=== PATIENT | male | born 1945 | race American Indian/Alaskan Native ===

== ENCOUNTER 2020-10-23 06:04 | Day surgery (SDC) | payer MEDICARE ==
--- NOTE | 2020-10-18 13:45 | Anesthesia Consultation ---
Anesthesia Consult and Med Hx Date of service: 10/23/20 - Airway Anesthetic Teeth Evaluation: Crowns ROM Head & Neck: Adequate Mental/Hyoid Distance: Adequate Mallampati Class: Class II Intubation Access Assessment: Good - Pre-Operative Health Status ASA Pre-Surgery Classification: ASA3 Proposed Anesthetic Plan: General - Pulmonary Hx Smoking: No Hx Asthma: No Hx Respiratory Symptoms: No (+2FS. Used to walk 1.5 miles 3x/week) COPD: No Hx Pneumonia: No Hx Sleep Apnea: No (ELIZABETH PRE SCREEN HIGH RISK) - Cardiovascular System Hx Hypertension: Yes (+Cardiac Clearance) Hx Heart Attack/AMI: No (CHF/Cardiomyopathy EF 0.40) Hx Pacemaker: Yes Hx Internal Defibrillator: Yes ([id number] Never discharged. 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
[~2020-10-23 06:04] MED LIST: LACTATED RINGERS 1,000 ML IV SCH; WATER FOR IRRIG STERILE 1,500 ML BOTTLE IR ONE
[2020-10-23] MEDS ORDERED: BACTERIOSTATIC SODIUM CHLORIDE 0.9% 30 ML VIAL INFILTRATI ONE (06:28)
[2020-10-23] MEDS ORDERED: ceFAZolin/STERILE WATER 2 GM/20 ML SYRINGE IV NR (07:00)
[2020-10-23] MEDS ORDERED: HYDROmorphone 1 MG/1 ML INJ ONE (07:12)
[2020-10-23] MEDS ORDERED: LIDOCAINE MPF (2%) 20 MG/1 ML VIAL 5 ML ONE (07:12)
[2020-10-23] MEDS ORDERED: propofoL 200 MG/20 ML VIAL IV ONE (07:12)
[2020-10-23] MEDS ORDERED: MIDAZOLAM 2 MG/2 ML INJ ONE (07:12)
[2020-10-23] MEDS ORDERED: MIDAZOLAM 2 MG/2 ML INJ IV NR (07:15)
[2020-10-23] MEDS ORDERED: fentaNYL 100 MCG/2 ML INJ IV PRN (07:29)
--- NOTE | 2020-10-23 07:29 | Anesthesia Day of Surgery ---
Anesthesia Day of Surgery - Day of Surgery Patient Examined: Yes Patient H&P Reviewed: Yes Patient is NPO: Yes Beta Blockers: Yes Cardiac Clearance: Yes
[2020-10-23] MEDS ORDERED: WATER FOR IRRIG STERILE 2000 ML IR ONE (08:09)
[2020-10-23] MEDS ORDERED: IOHEXOL 300 MG/ML 50ML IV ONE (08:11)
[2020-10-23] MEDS ORDERED: WATER FOR IRRIG STERILE 1,500 ML BOTTLE IR ONE (08:25)
[2020-10-23] MEDS ORDERED: ONDANSETRON 4 MG/2 ML INJ ONE (08:34)
--- NOTE | 2020-10-23 08:47 | Fluoroscopy Report ---
INTRAOPERATIVE FLUOROSCOPY: RETROGRADE UROGRAPHY INDICATION / CLINICAL INFORMATION: CYSTO TURP. BILATERAL RPGS. TECHNIQUE: Intraoperative spot images were obtained during the procedure. FINDINGS: No filling defects are seen in either renal collecting system or ureter. Embolization coils project o jim the right abdomen medial to the right kidney. Fluoroscopy Time: 11 seconds. Fluoroscopy Images: 8. Signer Name: Chuck Templeton MD Signed: 10/23/2020 8:43 AM Workstation Name: [id number]
--- NOTE | 2020-10-23 08:56 | Short Stay Summary ---
Short Stay Documentation Date of service: 10/23/20 - History H&P: obtained from office - Allergies and Medications Current Medications: Allergies lisinopril Adverse Reaction (Severe, Verified 10/09/20 15:31) Angioedema Home Medications Medication Instructions Recorded Confirmed Last Taken Type Alfuzosin HCl ER 10 mg PO DAILY 10/09/20 10/09/20 10/22/20 History Aspirin 81 mg PO DAILY 10/09/20 10/23/20 5 Days Ago History ~10/18/20 AtorvaSTATin 20 mg PO DAILY 10/09/20 10/09/20 10/22/20 History Calcium 1 tab PO DAILY 10/09/20 10/09/20 10/22/20 History Finasteride 5 mg PO DAILY 10/09/20 10/09/20 10/22/20 History Januvia 50 mg PO DAILY 10/09/20 10/09/20 10/22/20 History One-Daily Multi-Vitamin 1 tab PO DAILY 10/09/20 10/09/20 10/22/20 History Spironolactone 25 mg PO DAILY 10/09/20 10/09/20 10/22/20 History Tacrolimus [Prograf] 2 cap PO BID 10/09/20 10/09/20 10/22/20 History amLODIPine 5 mg PO DAILY 10/09/20 10/09/20 10/22/20 History carvediloL 25 mg PO Q12HR 10/09/20 10/09/20 10/22/20 History Active Medications Cefazolin Sodium (Cefazolin/Sterile Water 2 Gm/20 Ml Syringe) 2 gm IV PREOP NR Stop: 10/23/20 23:59 Fentanyl (Fentanyl 100 Mcg/2 Ml Inj) 50 mcg IV Q5MIN PRN PRN Reason: Pain , Severe (7-10) Stop: 10/23/20 23:00 Lactated Ringer's (Lactated Ringers) 1,000 mls @ 100 mls/hr IV DIRECT TABATHA Last Admin: 10/23/20 07:25 Dose: 100 mls/hr Documented by: Midazolam HCl (Midazolam 2 Mg/2 Ml Inj) 2 mg IV ONCE NR Stop: 10/23/20 14:00 Last Admin: 10/23/20 07:15 Dose: 2 mg Documented by: - Brief post op/procedure progress note Date of procedure: 10/23/20 Pre-op diagnosis: bladder tumor Post-op diagnosis: same Procedure: cysto, rpg, turbt--right, tur bx prostate Anesthesia: GETA Surgeon: ISABELLE JONES Estimated blood loss: minimal Pathology: list (bladder tumor, prostate bx) Specimen disposition: to lab Condition: stable - Hospital course Hospital course: abx, pain pill, post op info on chart - Disposition Condition at discharge: Stable Disposition: DC-01 TO HOME OR SELFCARE Short Stay Discharge Plan Follow up with: YINA YEN [Other] - 7 Days
--- NOTE | 2020-10-23 08:58 | Operative Report ---
PREOPERATIVE DIAGNOSIS: Bladder tumor (right side wall). POSTOPERATIVE DIAGNOSIS: Bladder tumor (right side wall). PROCEDURE: Cystoscopy, bilateral retrograde pyelograms, transurethral resection of bladder tumor, TUR biopsy of prostate. SURGEON: Attila Flores MD ANESTHESIA: General. ESTIMATED BLOOD LOSS: Minimal. FLUIDS: Crystalloid. COMPLICATIONS: No complications. INDICATIONS: This patient is a 75-year-old gentleman known to my service with enlarged prostate and elevated PSA, developed an episode of gross hematuria. Cystoscopy revealed a papillary tumor on the right side wall, slightly on the dome. He presents now for surgical intervention. Risks, benefits, and complications were explained. DESCRIPTION OF PROCEDURE: The patient was taken to the operative suite, placed in a supine position. After adequate general anesthesia, placed in a dorsal lithotomy position, prepped and draped in a sterile fashion. Pancystourethroscopy was performed with a 22-Mosotho Storz cystoscope, no urethral abnormalities. His prostate displayed moderate trilobar obstruction. Bladder, obvious approximately a 1 cm papillary tumor in the right side wall near the dome. Both ureteral orifices in normal position. The patient had diffuse trabeculation. Bilateral retrograde pyelograms were obtained with an 8-Mosotho Cornelio catheter and 8 mL of contrast. No filling defects or obstruction. He did have some J hooking of his distal ureters. Using a yellow loop with the cutting and coag on 120 and 60, transurethral resection of the bladder tumor was performed without difficulty. I removed it completely, cauterized, normal base of tissue of 5 mm. Due to its location, got a little deep into the bladder muscle. We will leave a Naylor catheter afterwards. I did a TUR of the median lobe as a biopsy. Adequate hemostasis was achieved. Chips were evacuated out separately, prostate and bladder tumor. A 22-Mosotho 3-way catheter with a plug was placed. Rectal exam was benign. He was extubated and taken to recovery room. He will go home on [place] and follow up in the office. JOB# [id number] [facility]
[2020-10-23 09:43] VITALS: BP 126/82
--- NOTE | 2020-10-23 13:57 | Post Anesthesia Evaluation ---
- Post Anesthesia Evaluation Patient Participated: Yes Airway Patent: Yes Stable Respiratory Function: Yes Nausea/Vomiting: No Temp > 96.8F: Yes Pain Manageable: Yes Adequeate Hydration: Yes Anesthesia Complications: No
== END 2020-10-23 10:35 | disposition home or self-care (01) ==
LOC: OR 06:04
PROVIDERS: ATTEND Urology
DX: C67.2 Malignant neoplasm of lateral wall of bladder (principal); N40.0 Benign prostatic hyperplasia without lower urinary tract symptoms; N36.8 Other specified disorders of urethra; I50.9 Heart failure, unspecified; I42.9 Cardiomyopathy, unspecified; I11.0 Hypertensive heart disease with heart failure; E78.00 Pure hypercholesterolemia, unspecified; K21.9 Gastro-esophageal reflux disease without esophagitis; M19.90 Unspecified osteoarthritis, unspecified site; E11.9 Type 2 diabetes mellitus without complications; Z98.890 Other specified postprocedural states; Z86.19 Personal history of other infectious and parasitic diseases; Z88.8 Allergy status to other drugs, medicaments and biological substances; Z79.899 Other long term (current) drug therapy; Z98.49 Cataract extraction status, unspecified eye; Z90.49 Acquired absence of other specified parts of digestive tract; Z94.4 Liver transplant status; Z85.89 Personal history of malignant neoplasm of other organs and systems
CPT/HCPCS: 52234; 55700; 74420; 82962; 88305; 88307; A4217; J0690; J1170; J2250; J2405; J2704; J7120; Q9967; U0003

== ENCOUNTER 2020-10-24 03:37 | Emergency (ER) | payer MEDICARE ==
--- NOTE | 2020-10-24 03:57 | Event Note ---
ED Screening Note Date of service: 10/24/20 Time: 03:47 ED Screening Note: 75-year-old -[place] male was brought in by his reporting he recently got a catheter placed and now it is leaking and causing pain. Patient states that he had a catheter placed by Dr. Yaakov Flores urologist yesterday at 7:30 in the morning. This initial assessment/diagnostic orders/clinical plan/treatment(s) is/are subject to change based on patients health status, clinical progression and re-assessment by fellow clinical providers in the ED. Further treatment and workup at subsequent clinical providers discretion. Patient/guardian urged not to elope from the ED as their condition may be serious if not clinically assessed and managed. Initial orders include:
--- NOTE | 2020-10-24 04:27 | Emergency Department Report ---
ED General Adult HPI - General Chief complaint: Tube Replacement Stated complaint: CATHETER LEAKING/PAINFUL Time Seen by Provider: 10/24/20 04:10 Source: patient Mode of arrival: Ambulatory Limitations: No Limitations - History of Present Illness Initial comments: Patient is 75 years old male with history of benign prostatic hypertrophy and a recent diagnosis of papillary carcinoma. Patient had cystoscopy yesterday by . Patient presented to the ER complaining of leaking around the catheter with pain. Patient has denied any fever or chills. No nausea or vomiting. - Related Data Home Medications Medication Instructions Recorded Confirmed Last Taken Alfuzosin HCl ER 10 mg PO DAILY 10/09/20 10/09/20 10/22/20 Aspirin 81 mg PO DAILY 10/09/20 10/23/20 5 Days Ago ~10/18/20 AtorvaSTATin 20 mg PO DAILY 10/09/20 10/09/20 10/22/20 Calcium 1 tab PO DAILY 10/09/20 10/09/20 10/22/20 Finasteride 5 mg PO DAILY 10/09/20 10/09/20 10/22/20 Januvia 50 mg PO DAILY 10/09/20 10/09/20 10/22/20 One-Daily Multi-Vitamin 1 tab PO DAILY 10/09/20 10/09/20 10/22/20 Spironolactone 25 mg PO DAILY 10/09/20 10/09/20 10/22/20 Tacrolimus [Prograf] 2 cap PO BID 10/09/20 10/09/20 10/22/20 amLODIPine 5 mg PO DAILY 10/09/20 10/09/20 10/22/20 carvediloL 25 mg PO Q12HR 10/09/20 10/09/20 10/22/20 Allergies Allergy/AdvReac Type Severity Reaction Status Date / Time lisinopril AdvReac Severe Angioedema Verified 10/09/20 15:31 ED Review of Systems ROS: Stated complaint: CATHETER LEAKING/PAINFUL Other details as noted in HPI Comment: All other systems reviewed and negative Constitutional: denies: chills, fever Respiratory: denies: cough, shortness of breath, SOB with exertion Cardiovascular: denies: chest pain, palpitations Gastrointestinal: denies: abdominal pain, nausea, vomiting Musculoskeletal: denies: back pain Neurological: denies: headache, weakness ED Past Medical Hx - Past Medical History Hx Hypertension: Yes (+Cardiac Clearance) Hx Heart Attack/AMI: No (CHF/Cardiomyopathy EF 0.40) Hx Congestive Heart Failure: Yes Hx Diabetes: Yes (MILD / DRUG INDUCED) Hx GERD: Yes Hx Liver 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 ) Hx Cholecystectomy: Yes (TAKEN OUT SAME TIME LIVER TRANSPLANT) - Social History Smoking Status: Never Smoker - Medications Home Medications: Home Medications Medication Instructions Recorded Confirmed Last Taken Type Alfuzosin HCl ER 10 mg PO DAILY 10/09/20 10/09/20 10/22/20 History Aspirin 81 mg PO DAILY 10/09/20 10/23/20 5 Days Ago History ~10/18/20 AtorvaSTATin 20 mg PO DAILY 10/09/20 10/09/20 10/22/20 History Calcium 1 tab PO DAILY 10/09/20 10/09/20 10/22/20 History Finasteride 5 mg PO DAILY 10/09/20 10/09/20 10/22/20 History Januvia 50 mg PO DAILY 10/09/20 10/09/20 10/22/20 History One-Daily Multi-Vitamin 1 tab PO DAILY 10/09/20 10/09/20 10/22/20 History Spironolactone 25 mg PO DAILY 10/09/20 10/09/20 10/22/20 History Tacrolimus [Prograf] 2 cap PO BID 10/09/20 10/09/20 10/22/20 History amLODIPine 5 mg PO DAILY 10/09/20 10/09/20 10/22/20 History carvediloL 25 mg PO Q12HR 10/09/20 10/09/20 10/22/20 History ED Physical Exam - General Limitations: No Limitations General appearance: alert, in no apparent distress - Head Head exam: Present: atraumatic, normocephalic, normal inspection - Eye Eye exam: Present: normal appearance - ENT ENT exam: Present: normal exam, normal orophraynx, mucous membranes moist - Respiratory Respiratory exam: Present: normal lung sounds bilaterally - Cardiovascular Cardiovascular Exam: Present: regular rate, normal rhythm, normal heart sounds - GI/Abdominal GI/Abdominal exam: Present: soft, normal bowel sounds. Absent: distended, tenderness, guarding, rebound, rigid - exam: Present: other (Catheter in place however there is significant leakage around the catheter.) - Back Exam Back exam: Present: normal inspection, full ROM. Absent: CVA tenderness (R), CVA tenderness (L) - Neurological Exam Neurological exam: Present: alert, oriented X3, CN II-XII intact - Skin Skin exam: Present: warm, intact, normal color ED Course Vital Signs 10/24/20 10/24/20 03:53 08:00 Temperature 98.4 F Pulse Rate 93 H 79 Respiratory 18 16 Rate Blood Pressure 133/83 Blood Pressure 136/89 [Left] O2 Sat by Pulse 96 97 Oximetry ED Medical Decision Making - Medical Decision Making Patient is 75 years old male with history of benign prostatic hypertrophy and a recent diagnosis of papillary carcinoma. Patient had cystoscopy yesterday by . Patient presented to the ER complaining of leaking around the catheter with pain. Patient has denied any fever or chills. No nausea or vomiting. I discussed the patient with Dr. Moses, he advised to keep the patient in the emergency room and will come and examine the patient. Critical care attestation.: If time is entered above; I have spent that time in minutes in the direct care of this critically ill patient, excluding procedure time. ED Disposition Clinical Impression: Naylor catheter problem Disposition: DC-01 TO HOME OR SELFCARE Is pt being admited?: No Condition: Stable Instructions: Indwelling Urinary Catheter Care, Adult Referrals: ISABELLE JONES MD [Staff Physician] - 3-5 Days PRIMARY CARE, [Primary Care Provider] - 3-5 Days
[2020-10-24] MEDS ORDERED: SODIUM CHLORIDE IRRI 500 ML 500 ML IR ONE (11:00)
[2020-10-24 11:15] VITALS: BP 136/89
[2020-10-24] MEDS ORDERED: SODIUM CHLORIDE 0.9% IRR 1,000 ML BOTTLE IR ONE (11:30)
--- NOTE | 2020-10-24 12:29 | Consultation ---
History of Present Illness - Reason for Consult Consult date: 10/24/20 - History of Present Illness 75 yr old s/p TURBT with polanco yesterday pt came to ER---concerned about blood in urine & bladder spasms abd soft polanco draining well ---irrigated with 50-100cc saline---no clots a/p hematuria--s/p bladder tumor + bladder spasm home with myrbetriq 25mg daily (samples given) keep f/u Medications and Allergies Allergies Allergy/AdvReac Type Severity Reaction Status Date / Time lisinopril AdvReac Severe Angioedema Verified 10/09/20 15:31 Home Medications Medication Instructions Recorded Confirmed Last Taken Type Alfuzosin HCl ER 10 mg PO DAILY 10/09/20 10/09/20 10/22/20 History Aspirin 81 mg PO DAILY 10/09/20 10/23/20 5 Days Ago History ~10/18/20 AtorvaSTATin 20 mg PO DAILY 10/09/20 10/09/20 10/22/20 History Calcium 1 tab PO DAILY 10/09/20 10/09/20 10/22/20 History Finasteride 5 mg PO DAILY 10/09/20 10/09/20 10/22/20 History Januvia 50 mg PO DAILY 10/09/20 10/09/20 10/22/20 History One-Daily Multi-Vitamin 1 tab PO DAILY 10/09/20 10/09/20 10/22/20 History Spironolactone 25 mg PO DAILY 10/09/20 10/09/20 10/22/20 History Tacrolimus [Prograf] 2 cap PO BID 10/09/20 10/09/20 10/22/20 History amLODIPine 5 mg PO DAILY 10/09/20 10/09/20 10/22/20 History carvediloL 25 mg PO Q12HR 10/09/20 10/09/20 10/22/20 History Exam - Constitutional Vitals: Temp Pulse Resp BP Pulse Ox 98.4 F 79 16 136/89 97 10/24/20 03:53 10/24/20 08:00 10/24/20 08:00 10/24/20 08:00 10/24/20 08:00
== END 2020-10-24 12:00 | disposition home or self-care (01) ==
LOC: ED 03:37
DX: T83.038A Leakage of other urinary catheter, initial encounter (principal); I11.0 Hypertensive heart disease with heart failure; I50.9 Heart failure, unspecified; E11.9 Type 2 diabetes mellitus without complications; K21.9 Gastro-esophageal reflux disease without esophagitis; M19.91 Primary osteoarthritis, unspecified site; Z90.49 Acquired absence of other specified parts of digestive tract; Z98.890 Other specified postprocedural states; Z79.899 Other long term (current) drug therapy; Z88.8 Allergy status to other drugs, medicaments and biological substances; Y92.89 Other specified places as the place of occurrence of the external cause
CPT/HCPCS: 99282

== ENCOUNTER 2021-02-24 07:33 | Day surgery (SDC) | payer MEDICARE ==
--- NOTE | 2021-02-20 14:37 | Anesthesia Consultation ---
Anesthesia Consult and Med Hx Date of service: 02/24/21 - Airway Anesthetic Teeth Evaluation: Good ROM Head & Neck: Adequate Mental/Hyoid Distance: Adequate Mallampati Class: Class II Intubation Access Assessment: Good - Pre-Operative Health Status ASA Pre-Surgery Classification: ASA3 Proposed Anesthetic Plan: General - Pulmonary Hx Smoking: No Hx Respiratory Symptoms: No (+2FS. Used to walk 1.5 miles 3x/week) Hx Sleep Apnea: No (ELIZABETH PRE SCREEN HIGH RISK) - Cardiovascular System Hx Hypertension: Yes (+Cardiac Clearance last time. Saw cards [id number]) Hx Heart Attack/AMI: No (CHF/Cardiomyopathy EF 0.45-.50 [id number]) Hx Pacemaker: Yes Hx Internal Defibrillator: Yes ([id number] Never discharged. 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
[~2021-02-24 07:33] MED LIST changes: +IOHEXOL 300 MG/ML 50ML IV ONE; +MIDAZOLAM 2 MG/2 ML INJ IV NR; +WATER FOR IRRIG STERILE 2000 ML IR ONE; +ceFAZolin/STERILE WATER 2 GM/20 ML SYRINGE IV NR
--- NOTE | 2021-02-24 08:31 | Anesthesia Day of Surgery ---
Anesthesia Day of Surgery - Day of Surgery Patient Examined: Yes Patient H&P Reviewed: Yes Patient is NPO: Yes Beta Blockers: Yes
[2021-02-24] MEDS ORDERED: HYDROcodone/ACETAMINOPHEN 5-325 MG TAB PO PRN (09:00)
[2021-02-24] MEDS ORDERED: HYDROmorphone 1 MG/1 ML INJ IV PRN (09:00)
[2021-02-24] MEDS ORDERED: ONDANSETRON 4 MG/2 ML INJ IV PRN (09:00)
[2021-02-24] MEDS ORDERED: dexAMETHasone 20 MG/5 ML VIAL ONE (09:01)
[2021-02-24] MEDS ORDERED: fentaNYL 100 MCG/2 ML INJ ONE (09:01)
[2021-02-24] MEDS ORDERED: LIDOCAINE MPF (2%) 20 MG/1 ML VIAL 5 ML ONE (09:01)
[2021-02-24] MEDS ORDERED: propofoL 200 MG/20 ML VIAL IV ONE (09:02)
[2021-02-24] MEDS ORDERED: ACETAMINOPHEN IV 1,000 MG/100 ML BOTTLE IV ONE (09:16)
[2021-02-24] MEDS ORDERED: WATER FOR IRRIG STERILE 1,500 ML BOTTLE IR ONE (09:42)
[2021-02-24] MEDS ORDERED: WATER FOR IRRIG STERILE 2000 ML IR ONE (09:42)
[2021-02-24] MEDS ORDERED: IOHEXOL 300 MG/ML 50ML IV ONE (09:42)
[2021-02-24] MEDS ORDERED: ePHEDrine SULFATE 50 MG/1 ML INJ ONE ×2 (09:45→09:59)
--- NOTE | 2021-02-24 10:55 | Operative Report ---
DATE OF SURGERY: 02/24/2021 PREOPERATIVE DIAGNOSIS: Recurrent bladder tumors. POSTOPERATIVE DIAGNOSIS: Recurrent bladder tumors. PROCEDURES: Cystoscopy, bilateral retrograde pyelograms, biopsy of bladder lesions x3, TUR bladder neck, right side. SURGEON: Attila Flores MD ANESTHESIA: General. ESTIMATED BLOOD LOSS: Minimal. FLUIDS: Crystalloid. COMPLICATIONS: No complications. INDICATIONS: This patient is a 76-year-old gentleman with history of a small bladder tumor on surveillance cystoscopy was found to have recurrent small tumors. He presents now for intervention. DESCRIPTION OF PROCEDURE: The patient was taken to the operative suite, placed in a supine position. After adequate general anesthesia, placed in the dorsal lithotomy position, prepped and draped in a sterile fashion. Pancystourethroscopy was performed with a 22-Andorran Storz cystoscope. No urethral abnormalities. His prostate displayed moderate trilobar obstruction with moderate sized median lobe. Both ureteral orifices in normal position. Small papillary tumors 3 on the right upper side wall, bilateral retrograde pyelograms were obtained with an 8-Andorran Cornelio catheter and 8 mL of contrast. No filling defects or obstruction. Next, using a cold cup biopsy forceps, the tumors were superficial, did not want to perforate the wall. I was able to remove them actually without using a resectoscope. The base of all 3 tumors were cauterized with 5 mm of normal tissue. A small TUR of the bladder neck (prostate) was also performed. Adequate hemostasis was achieved. Bladder was drained. Rectal exam was benign. He was extubated and taken to recovery room in stable condition. He will go home on [employer] [facility] [place]. TID: [id number] RECEIPT: [id number] [facility]
[2021-02-24 13:15] VITALS: BP 114/75
--- NOTE | 2021-02-24 17:34 | Fluoroscopy Report ---
INTRAOPERATIVE FLUOROSCOPY: ABDOMEN INDICATION: BLADDER CANCER. TECHNIQUE: Intraoperative spot images were obtained during the procedure. FINDINGS: There is unremarkable opacification of the ureters and renal collecting systems on the submitted imag es. Please see the report for the procedure for further details. Fluoroscopy Time: 9 seconds. Fluoroscopy Images: 8. Signer Name: Mitesh Callejas MD Signed: 02/24/2021 5:29 PM Workstation Name: [id number]
== END 2021-02-24 07:34 | disposition home or self-care (01) ==
LOC: OR 07:33
PROVIDERS: ATTEND Urology
DX: C67.2 Malignant neoplasm of lateral wall of bladder (principal); Z20.822 Contact with and (suspected) exposure to COVID-19; N30.20 Other chronic cystitis without hematuria; I11.0 Hypertensive heart disease with heart failure; I50.9 Heart failure, unspecified; K21.9 Gastro-esophageal reflux disease without esophagitis; M19.90 Unspecified osteoarthritis, unspecified site; E11.9 Type 2 diabetes mellitus without complications; Z80.42 Family history of malignant neoplasm of prostate; Z88.8 Allergy status to other drugs, medicaments and biological substances; Z79.899 Other long term (current) drug therapy; Z79.82 Long term (current) use of aspirin; Z98.49 Cataract extraction status, unspecified eye; Z95.0 Presence of cardiac pacemaker; Z90.49 Acquired absence of other specified parts of digestive tract; Z94.4 Liver transplant status; Z98.890 Other specified postprocedural states
CPT/HCPCS: 52204; 52500; 74420; 82962; 88305; A4217; J0131; J0690; J1100; J1170; J2250; J2405; J2704; J3010; J7120; Q9967; U0003; 88307

== ENCOUNTER 2022-04-15 06:01 | Day surgery (SDC) | payer MEDICARE ==
[2022-04-14 10:33] LABS: Albumin 3.9 g/dL (3.9-5); Calcium 9.6 mg/dL (8.4-10.2)
[2022-04-14 10:46] LABS: Hematocrit 42.6 % (35.5-45.6); Hemoglobin 14.2 gm/dl (11.8-15.2); Mean Corpuscular HGB Conc 33 % (32-34); Mean Corpuscular Volume 85 fl (84-94); Platelet Count 213 K/mm3 (140-440); Red Blood Count 5.03 M/mm3 (3.65-5.03); Red Cell Distribution Width 15.4 % (13.2-15.2)
[2022-04-15] MEDS ORDERED: LACTATED RINGERS 1,000 ML ONE (06:20)
[2022-04-15] MEDS ORDERED: LACTATED RINGERS 1,000 ML IV SCH (06:45)
--- NOTE | 2022-04-15 07:41 | Anesthesia Consultation ---
Anesthesia Consult and Med Hx Date of service: 04/15/22 - Airway Anesthetic Teeth Evaluation: Good ROM Head & Neck: Adequate Mental/Hyoid Distance: Adequate Mallampati Class: Class II Intubation Access Assessment: Possibly Difficult - Pulmonary Exam CTA: Yes - Cardiac Exam Cardiac Exam: RRR - Pre-Operative Health Status ASA Pre-Surgery Classification: ASA3 Proposed Anesthetic Plan: General - Pulmonary Hx Smoking: No Hx Respiratory Symptoms: No (+2FS. 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 No FHAC.
--- NOTE | 2022-04-15 07:41 | Anesthesia Day of Surgery ---
Anesthesia Day of Surgery - Day of Surgery Patient Examined: Yes Patient H&P Reviewed: Yes Patient is NPO: Yes Beta Blockers: Yes Cardiac Clearance: Yes (from 07/2021 evaluation)
[2022-04-15] MEDS ORDERED: ONDANSETRON 4 MG/2 ML INJ ONE (07:49)
[2022-04-15] MEDS ORDERED: HYDROmorphone 0.5 MG/0.5 ML INJ ONE (07:49)
[2022-04-15] MEDS ORDERED: dexAMETHasone 20 MG/5 ML VIAL ONE (07:49)
[2022-04-15] MEDS ORDERED: LIDOCAINE MPF (2%) 20 MG/1 ML VIAL 5 ML ONE (07:49)
[2022-04-15] MEDS ORDERED: propofoL 200 MG/20 ML VIAL IV ONE (07:50)
[2022-04-15] MEDS ORDERED: ePHEDrine SULFATE 50 MG/1 ML INJ ONE ×2 (07:50→08:19)
[2022-04-15] MEDS ORDERED: ceFAZolin/STERILE WATER 2 GM/20 ML SYRINGE IV NR (08:00)
[2022-04-15] MEDS ORDERED: WATER FOR IRRIG STERILE 2000 ML IR ONE (08:47)
--- NOTE | 2022-04-15 08:48 | Short Stay Summary ---
Short Stay Documentation Date of service: 04/15/22 - History H&P: obtained from office - Allergies and Medications Current Medications: Allergies lisinopril Adverse Reaction (Severe, Verified 10/09/20 15:31) Angioedema Home Medications Medication Instructions Recorded Confirmed Last Taken Type Alfuzosin HCl ER 10 mg PO DAILY 10/09/20 04/13/22 04/15/22 05:30 History Aspirin 81 mg PO DAILY 10/09/20 04/15/22 04/09/22 History AtorvaSTATin 20 mg PO DAILY 10/09/20 04/13/22 04/14/22 History Calcium 1 tab PO DAILY 10/09/20 04/13/22 04/14/22 History Finasteride 5 mg PO DAILY 10/09/20 04/13/22 04/15/22 05:30 History One-Daily Multi-Vitamin 1 tab PO DAILY 10/09/20 04/13/22 04/14/22 History Spironolactone 25 mg PO DAILY 10/09/20 04/13/22 04/14/22 History Tacrolimus [Prograf] 2 cap PO BID 10/09/20 04/13/22 04/15/22 05:30 History amLODIPine 5 mg PO DAILY 10/09/20 04/13/22 04/15/22 05:30 History carvediloL 25 mg PO Q12HR 10/09/20 04/13/22 04/15/22 05:30 History glipiZIDE [Glucotrol] 5 mg PO QDAY 04/14/22 04/14/22 04/14/22 History Active Medications Cefazolin Sodium (Cefazolin/Sterile Water 2 Gm/20 Ml Syringe) 2 gm IV PREOP NR Stop: 04/15/22 13:00 Lactated Ringer's (Lactated Ringers) 1,000 mls @ 100 mls/hr IV DIRECT TABATHA Last Admin: 04/15/22 07:05 Dose: 100 mls/hr - Brief post op/procedure progress note Date of procedure: 04/15/22 Pre-op diagnosis: bladder tumors (2) Post-op diagnosis: same Procedure: cysot, rpg, TURBT (2XM TOTAL) Anesthesia: GETA Surgeon: ISABELLE JONES Pathology: list (bladder tumor) Specimen disposition: to lab Condition: stable - Hospital course Hospital course: macrobid & norco on chart - Disposition Condition at discharge: Stable Disposition: HOME / SELF CARE / HOMELESS Short Stay Discharge Plan Follow up with: PRIMARY CARE, [Primary Care Provider] - 7 Days
--- NOTE | 2022-04-15 09:17 | Fluoroscopy Report ---
FLUOROSCOPY RETROGRADE UROGRAPHY INDICATION: BILAT RPG W/ BLADDER BIOPSY. COMPARISON: 02/24/2021 IMPRESSION: 9 seconds of fluoroscopy time was provided by radiology during retrograde urography. 4 fluoroscopic images are presented demonstrating unremarkable opacification of both renal collecting s ystems. No filling defect or abnormal dilatation is detected. Bladder biopsy was performed per the pr ocedural notes. Please correlate with urology. Signer Name: Brian Pradhan Jr, MD Signed: 04/15/2022 9:12 AM Workstation Name: [id number]
--- NOTE | 2022-04-15 09:27 | Operative Report ---
DATE OF SURGERY: 04/15/2022 PREOPERATIVE DIAGNOSIS: Recurrent bladder tumor x2. POSTOPERATIVE DIAGNOSIS: Recurrent bladder tumor x2. PROCEDURE PERFORMED: Cystoscopy, bilateral retrograde pyelograms, transurethral resection of bladder tumor x2 (2 cm). SURGEON: Attila Flores MD ANESTHESIA: General. ESTIMATED BLOOD LOSS: Minimal. FLUIDS: Crystalloid. COMPLICATIONS: No complications. INDICATIONS: This patient is a 77-year-old male with a liver transplant and a history of recurrent superficial bladder tumor, has not received intravesical therapy in the past. Surveillance cystoscopy revealed 2 tumors. He presents now for endoscopic evaluation. DESCRIPTION OF PROCEDURE: The patient was taken to the operative suite, placed in the supine position. After adequate general anesthesia, placed in the dorsal lithotomy position, prepped and draped in a sterile fashion. Pancystourethroscopy was performed with a 22-[place] Storz cystoscope, no urethral abnormalities. 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 Bladder tumor at the dome, tumor posteriorly. Bilateral retrograde pyelograms were obtained with an 8-[place] Cornelio catheter and 8 mL of contrast. No filling defects or obstruction. Next, using a 24-[place]wandan resectoscope and loop with cutting and coag and 120 and 60 transurethral resections of bladder tumor was performed, cauterized base of normal tissue, 5 mm normal tissue circumferentially on both tumors. They were evacuated out with the [email or web address] evacuator. Retrograde had some J hooking but no filling defects. Bladder was drained. Rectal exam was benign. He was extubated and taken to the recovery room. TID: [id number] RECEIPT: [id number] [facility]
[2022-04-15 10:05] VITALS: BP 123/86
--- NOTE | 2022-04-15 11:27 | Post Anesthesia Evaluation ---
- Post Anesthesia Evaluation Patient Participated: Yes Airway Patent: Yes Stable Respiratory Function: Yes Nausea/Vomiting: No Temp > 96.8F: Yes Pain Manageable: Yes Adequeate Hydration: Yes Anesthesia Complications: No Block Receding Appropriately: Not Applicable Patient on Ventilator: No
== END 2022-04-15 10:00 | disposition home or self-care (01) ==
LOC: OR 06:01
PROVIDERS: ATTEND Urology
DX: C67.4 Malignant neoplasm of posterior wall of bladder (principal); C67.1 Malignant neoplasm of dome of bladder; I11.0 Hypertensive heart disease with heart failure; I50.9 Heart failure, unspecified; I42.9 Cardiomyopathy, unspecified; E78.00 Pure hypercholesterolemia, unspecified; K21.9 Gastro-esophageal reflux disease without esophagitis; M19.90 Unspecified osteoarthritis, unspecified site; E11.9 Type 2 diabetes mellitus without complications; Z80.42 Family history of malignant neoplasm of prostate; Z20.822 Contact with and (suspected) exposure to COVID-19; Z98.49 Cataract extraction status, unspecified eye; Z95.0 Presence of cardiac pacemaker; Z90.49 Acquired absence of other specified parts of digestive tract; Z94.4 Liver transplant status; Z85.858 Personal history of malignant neoplasm of other endocrine glands; Z98.890 Other specified postprocedural states; Z88.8 Allergy status to other drugs, medicaments and biological substances; Z79.899 Other long term (current) drug therapy; Z79.82 Long term (current) use of aspirin
CPT/HCPCS: 36415; 52234; 74420; 80053; 82962; 85027; 88307; J0690; J1100; J1170; J2405; J2704; J3490; J7120; Q9967; U0003